=== PATIENT | female | born 1935 | race Caucasian/White ===

== ENCOUNTER 2017-11-20 03:06 | Observation (INO) | payer MEDICARE ==
--- NOTE | 2017-11-20 03:16 | ERNOTE ---
Dyspnea - General Presenting Symptoms: shortness of breath Time Seen by Provider: 11/20/17 03:09 Source: patient Exam Limitations: no limitations - Immun/Allergies/Home Medications Immunizations: IMMUNIZATION HX Immunizations Up to Date Yes History of Influenza Vaccine Yes Hx Pneumococcal Vaccination Yes Allergies/Adverse Reactions: Allergies acetaminophen [From Darvocet-N] Adverse Reaction (Verified 11/20/17 03:14) celecoxib [From Celebrex] Adverse Reaction (Verified 11/20/17 03:14) cephalexin [From Keflex] Adverse Reaction (Verified 11/20/17 03:14) etodolac Adverse Reaction (Verified 11/20/17 03:14) oxycodone Adverse Reaction (Verified 11/20/17 03:14) propoxyphene [From Darvocet-N] Adverse Reaction (Verified 11/20/17 03:14) Home Medications: HOME MEDICATIONS Cranberry Fruit Extract [Cranberry] 425 mg PO DAILY 10/30/17 [Last Taken Unknown ] Glucosamine/D3/Boswellia Shikha [Osteo Bi-Flex Tablet] 2 each PO DAILY 10/30/17 [ Last Taken Unknown] Latanoprost/Pf [Latanoprost 0.005% Eye Drop] 7.5 ml OP DAILY 10/30/17 [Last Taken Unknown] Naproxen Sodium [Aleve] 220 mg PO BID 10/30/17 [Last Taken Unknown] Propranolol HCl [Propranolol HCl ER] 80 mg PO DAILY 10/30/17 [Last Taken Unknown ] traMADol HCL [Tramadol HCl] 50 mg PO TID 10/30/17 [Last Taken Unknown] Loratadine 10 mg PO DAILY 11/20/17 [Last Taken Unknown] - History of Present Illness Narrative: Pt states she has been more short of breath for 24 hours. She denies fever or chills, has has a little bit of a cough Severity: moderate, severe Treatment FUR EXAMINER: paramedics Initiating event: Reports: upper resp illness Review of Systems - Review of Systems Constitutional: Present: recent illness, fatigue. Absent: fever, chills ENT: Absent: nose congestion, nasal drainage Respiratory: Present: shortness of breath, cough Cardiology: Absent: chest pain, palpitations Gastrointestinal/Abdominal: Absent: nausea, vomiting Endocrine: Absent: excessive sweating, flushing Medical History (Last Reviewed 11/20/17 @ 03:21 by Maximo Parker DO) COPD (chronic obstructive pulmonary disease) (Acute) Poole's palsy Glaucoma History of back surgery Hx of cataract Hx of mitral valve prolapse Hx of radiation therapy Hx of skin cancer, basal cell Macular degeneration Migraine Polio Surgical History: Surgical History (Last Reviewed 11/20/17 @ 03:21 by Maximo Parker DO) History of ankle surgery Hx of cataract surgery Hx of colonoscopy Hx of foot surgery Hx of total knee replacement Family History: Family History (Last Updated 11/20/17 @ 03:19 by Марина Marino) Mother Grandmother Colon cancer Father heart problem Other Heart problem Social History: Preferred Language Belarusian Physical Exam - Physical Exam General Appearance: Present: wd/wn, alert, no apparent distress Head Exam: Present: normal inspection, no evidence of injury Eye Exam: Normal inspection: bilateral Ears, Nose, Throat: Present: normal ENT inspection Neck: Present: full range of motion, other - prominant SCM Respiratory: Present: no respiratory distress, accessory muscle use, decreased breath sounds Cardiovascular/Chest: Present: regular rate, rhythm, no murmur, normal peripheral pulses Gastrointestinal/Abdominal: Present: normal bowel sounds, nontender, nondistended, soft Back Exam: Present: decreased range of motion Extremity Exam: Present: normal range of motion, no edema Neurological Exam: Present: alert, oriented, normal mood/affect, no motor/ sensory deficits, mix maker II-XII nml as tested Skin Exam: Present: normal color, warm/dry Lymphatic Exam: Present: no adenopathy ED Progress - Results and Orders Patient's Lab Results:: I have reviewed the patient's lab results. Results and Orders: Laboratory Tests 11/20/17 11/20/17 03:20 03:20 WBC 13.8 H Hgb 15.8 Hct 49.4 H Plt Count 238 Sodium 141 Potassium 4.3 Chloride 105 Carbon Dioxide 32.8 H BUN 31 H Creatinine 0.61 Random Glucose 135 H Calcium 9.9 Total Bilirubin 0.5 AST 41 ALT 44 Alkaline Phosphatase 108 B-Natriuretic Peptide 735 H Total Protein 7.7 Albumin 3.5 - Vital Signs Patient's Vital Signs:: I have reviewed the patient's vital signs. - EKG EKG: RBBB - incomplete, nonspecific ST T wave changes - of old FL, unchanged from - 10/30/2017 EKG read: Interp. by me - X-Ray X-Ray #1 X-Ray: chest Interpretation: Reviewed by me X-ray Comments: unchanged from 10/30. scarring at the bases. no infiltrate or effusion - Progress/Reassessment Progress:: Improved Progress Note-Subjective: 11/20/17 05:[address] Rico and he agrees to admit patient. Departure Clinical Impression: Acute exacerbation of chronic bronchitis - Departure Disposition: Still a patient Condition: Good Referrals: Bigg Jasso MD [Primary Care Provider] -
[2017-11-20 03:24] LABS: Hematocrit 49.4 % (37.0-47.0); Hemoglobin 15.8 gm/dL (12.5-16.0); Mean Cell Volume 96.7 fl (78-100); Mean Corpuscular Hemoglobin 30.9 pg (27-31); Mean Platelet Volume 9.7 fl (8-12.5); Neutrophil # 10.2 K/mm3 (1.3-6.0); Neutrophil % 73.8 % (42-75.0); Platelet Count 238 K/mm3 (150-450); Red Blood Count 5.11 M/mm3 (4.2-5.4); Red Cell Distribution Width 15.6 % (11.5-14.0); White Blood Count 13.8 K/mm3 (4.0-10.5)
[2017-11-20 03:43] LABS: Albumin * 3.5 gm/dl (3.4-5.0); Anion Gap 7.5 mmol/L (6.8-13.8); BUN/Creatinine Ratio 50.8 (9.0-21.6); Bilirubin, Total 0.5 mg/dL (0.0-1.1); Calcium * 9.9 mg/dL (7.9-10.9); Carbon Dioxide 32.8 mmol/L (24-32.6); Potassium 4.3 mmol/L (3.4-4.6); Total Protein 7.7 gm/dL (6.2-8.2)
[2017-11-20] MEDS ORDERED: KETOROLAC TROMETHAMINE 30 MG/ML VIAL IV ONE (04:50)
[2017-11-20] MEDS ORDERED: KETOROLAC TROMETHAMINE 30 MG/ML VIAL ONE (04:53)
[2017-11-20] MEDS ORDERED: METHYLPREDNISOLONE SOD SUCC/PF 125 MG/2 ML VIAL IV ONE (04:57)
[2017-11-20] MEDS ORDERED: METHYLPREDNISOLONE SOD SUCC/PF 125 MG/2 ML VIAL ONE ×2 (04:59→05:03)
[2017-11-20] MEDS ORDERED: LEVOFLOXACIN IN DEXTROSE 5 % 500 MG/100 ML BAG IV SCH (05:30)
[2017-11-20] MEDS ORDERED: guaiFENesin 100 MG/5 ML BTL PO PRN (10:06)
[2017-11-20] MEDS ORDERED: METHYLPREDNISOLONE SOD SUCC/PF 125 MG/2 ML VIAL IV SCH (11:00)
[2017-11-20] MEDS ORDERED: ALBUTEROL SULFATE/IPRATROPIUM 3 ML NEBU IH SCH (11:00)
[2017-11-20] MEDS: NORMAL SALINE 500 ML IV PRN ×2 (11:31→23:24)
[2017-11-20 11:36] LABS: Urine Bilirubin Negative (NEGATIVE); Urine Blood Negative /ul (NEGATIVE); Urine Ketone 5 mg/dL (NEGATIVE); Urine Nitrite Negative (NEGATIVE); Urine Protein Negative (NEGATIVE); Urine Specific Gravity >=1.030 SP.GR. (1.005-1.010); Urine Urobilinogen Normal (NORMAL)
--- NOTE | 2017-11-20 11:37 | PN ---
Progess Note - Interim Date: 11/20/17 Time: 08:00 Narrative: 11/20/17 11:34 I introduced myself to this morning and then introduced Dr. Mohamud to her. Dr. Mohamud will manage her care and do the documentation with me supervising.
[2017-11-20 12:05] LABS: Urine Appearance Clear (CLEAR); Urine Bacteria TRACE; Urine Color Yellow; Urine WBC None Seen /hpf (0-5)
[2017-11-20] MEDS ORDERED: LORATADINE 10 MG TABLET PO SCH (13:45)
[2017-11-20] MEDS ORDERED: PROPRANOLOL HCL 80 MG CAPSULE.SA PO SCH (13:45)
[2017-11-20] MEDS ORDERED: LATANOPROST 25 DROP BTL OP SCH ×2 (13:45→21:00)
[2017-11-20] MEDS: NAPROXEN SODIUM 220 MG TABLET PO SCH ×2 (14:01→21:13)
--- NOTE | 2017-11-20 14:22 | HP ---
Chief Complaint - Chief Complaint Date of Service: 11/20/17 Time of Service: 13:48 Chief Complaint: Shortness of breath of 2 days duration. History of Present Illness: 82 y/o female with PMHX of Polio, COPD, migraines, cataracts, macular degeneration and HTN, was admitted to observation at [facility] for worsening shortness of breath that started yesterday and gradually worsened. Px reports that she occasionally get these episodes with mild exertion due to her COPD but they usually improve with rest and her Ventolin inhaler. However, she says this time her symptoms didn't improve and her breathing became very difficult. Px reports dizziness, chest tightness, weakness, and fever. She also reports occasional nonproductive cough. She was treated with O2, IV antibx, and albuterol in ER and and after evaluation of px and her chart, labs revealed a mild leukocytosis with left shift. Therefore she was admitted to observation for treatment with breathing treatments with only Albuterol since bar refused anticholinergics due to worsening vision secondary to glaucoma and cataracts, she will also be treated with Iv antibiotics, oxygen therapy, and IV steroids. F /U labs were ordered for AM. Medical History (Last Reviewed 11/20/17 @ 07:00 by Karma Rice RN) COPD (chronic obstructive pulmonary disease) (Acute) Poole's palsy Glaucoma Hx of cataract Hx of mitral valve prolapse Hx of radiation therapy Hx of skin cancer, basal cell Macular degeneration Migraine Polio Surgical History: Surgical History (Last Updated 11/20/17 @ 06:59 by Karma Rice RN) History of ankle surgery History of back surgery Hx of cataract surgery Hx of colonoscopy Hx of foot surgery Hx of total knee replacement Family History: Family History (Last Updated 11/20/17 @ 07:03 by Karma Rice RN) Mother Diabetes Grandmother Colon cancer Father heart problem Brother Pacemaker Social History: Patient Lives/Resources Home Utilized Occupation retired Preferred Language Niuean Do you have any baptist or Yes cultural preference? Smoking Status Never smoker Have you smoked in the past 12 No months Do you dip or chew tobacco No Alcohol Use none Peds Patient Hx - Medical: Other - polio Review Of Systems (GEN) - Review of Systems Generalized/Overall Review: Present: Chills, Fever, Fatigue EENTM: Present: Blurred Vision Respiratory: Present: Cough, Shortness of Breath, Wheezing Cardiac: Present: No Symptoms Reported Abdominal: Present: No Symptoms Reported Genitourinary: Present: No Symptoms Reported Musculoskeletal: Present: No Symptoms Reported Neurological: Present: Headache, Weakness, Pre-existing Deficit - Ricky. LLex weakness due to childhood polio. Skin: Present: No Symptoms Reported Endocrine: Present: No Symptoms Reported Misc: All systems neg except as marked Immunizations: IMMUNIZATION HX Immunizations Up to Date Yes History of Influenza Vaccine Yes Hx Pneumococcal Vaccination Yes Allergies/Adverse Reactions: Allergies Allergy/AdvReac Type Severity Reaction Status Date / Time acetaminophen AdvReac Verified 11/20/17 07:03 [From Darvocet-N] celecoxib [From Celebrex] AdvReac Verified 11/20/17 07:03 cephalexin [From Keflex] AdvReac Verified 11/20/17 07:03 etodolac AdvReac Verified 11/20/17 07:03 oxycodone AdvReac Verified 11/20/17 07:03 propoxyphene AdvReac Verified 11/20/17 07:03 [From Darvocet-N] Home Medications: HOME MEDICATIONS Cranberry Fruit Extract [Cranberry] 2 cap PO AC 10/30/17 [Last Taken Unknown] Latanoprost/Pf [Latanoprost 0.005% Eye Drop] 1 drop OP HS 10/30/17 [Last Taken Unknown] Naproxen Sodium [Aleve] 220 mg PO BID 10/30/17 [Last Taken Unknown] Propranolol HCl [Propranolol HCl ER] 80 mg PO DAILY 10/30/17 [Last Taken Unknown ] Albuterol Sulfate [Ventolin HFA] 1 - 2 puff IH Q4H 11/20/17 [Last Taken Unknown] Bone Growth Factor 2 cap PO AC 11/20/17 [Last Taken Unknown] Glucosamine/D3/Boswellia Shikha [Osteo Bi-Flex Caplet] 1 each PO 0700,1700 [Last Taken Unknown] Loratadine 10 mg PO DAILY 11/20/17 [Last Taken Unknown] Migraine Support Formula 2 cap PO 0700,1700 11/20/17 [Last Taken Unknown] [place]-3 Fatty Acids/Fish Oil [Fish Oil 1,000 mg Capsule] 1 each PO 0700,1200, 1700 11/20/17 [Last Taken Unknown] Papaya [Papaya Enzyme] 1 each PO DAILY 11/20/17 [Last Taken Unknown] Systane I-Cap Eye Vitamin 1 tab PO 0700,1700 11/20/17 [Last Taken Unknown] Exam - Exam Vital Signs: Vital Signs - Last Taken Temp 36.5 C 11/20/17 10:25 Pulse 78 11/20/17 10:25 Resp 18 11/20/17 10:25 BP 124/77 11/20/17 10:25 Pulse Ox 94 11/20/17 10:25 Constitutional: Present: Alert, Oriented x3, Cooperative, Mild distress, Elderly , Thin and frail Eye Exam: bilateral eye: normal inspection, PERRL, EOMI, abnormal pupil Neck: Present: full range of motion, supple, normal inspection Back Exam: Present: normal inspection, other - Skeletal protrusion due to extreme thinliness. Breasts: Present: Exam deferred Respiratory: Present: decreased breath sounds, accessory muscle use, expiration (prolonged) Cardiovascular/Chest: Present: normal peripheral pulses, regular rate, rhythm Peripheral Pulses: carotid (R): 4+, carotid (L): 4+, femoral (R): 4+, femoral (L ): 4+, dorsalis-pedis (R): 3+, dorsalis-pedis (L): 3+, radial (R): 4+, radial (L ): 4+ Abdomen: Present: soft, nontender, nondistended, no rebound tenderness, no hepatospenomegaly, no masses, high pitched bowel sounds /Rectal: Present: Exam deferred Extremity: Present: no pedal edema, other - Bilateral deformity of 3rd -5th toes with limited mobility of forefoot. Skin Exam: Present: pallor Lymphatic: Present: no adenopathy Neurologic: Present: check inspector II-XII nml as tested, oriented x 3, abnormal gait, motor weakness - In lower extremities Appearance: Present: appropriate appearance, appropriate insight Eye contact: Present: cooperative, good eye contact Thoughts: Present: normal thought pattern Diagnostic Studies: Abnormal Lab Results 11/20/17 11/20/17 11/20/17 Range/Units 03:20 03:20 11:24 WBC 13.8 H (4.0-10.5) K/mm3 Hct 49.4 H (37.0-47.0) % RDW 15.6 H (11.5-14.0) % Lymphocytes % 13.8 L (20-51) % Eosinophils % 4.8 H (0.0-3.0) % Neutrophils # 10.2 H (1.3-6.0) K/mm3 Carbon Dioxide 32.8 H (24-32.6) mmol/L BUN 31 H (3-23) mg/dL BUN/Creatinine Ratio 50.8 H (9.0-21.6) Random Glucose 135 H (70-110) mg/dL B-Natriuretic Peptide 735 H (5-550) pg/mL Urine Glucose (UA) 250 H (NEGATIVE) mg/dL Urine RBC 5-10 H (0-5) /hpf Ur Epithelial Cells 5-10 H (0-5) /hpf Calcium Oxalate Crystal Moderate - 2+ H (NONE) /hpf Laboratory Results WBC 13.8 K/mm3 (4.0-10.5) H 11/20/17 03:20 RBC 5.11 M/mm3 (4.2-5.4) 11/20/17 03:20 Hgb 15.8 gm/dL (12.5-16.0) 11/20/17 03:20 Hct 49.4 % (37.0-47.0) H 11/20/17 03:20 MCV 96.7 fl (78-100) 11/20/17 03:20 MCH 30.9 pg (27-31) 11/20/17 03:20 MCHC 32.0 g/dl (32-36) 11/20/17 03:20 RDW 15.6 % (11.5-14.0) H 11/20/17 03:20 Plt Count 238 K/mm3 (150-450) 11/20/17 03:20 MPV 9.7 fl (8-12.5) 11/20/17 03:20 Immature Gran % (Auto) 0.20 % (0.001-0.429) 11/20/17 03:20 Immature Gran # (Auto) 0.03 K/mm3 (0.000-0.0310) 11/20/17 03:20 Neutrophils % 73.8 % (42-75.0) 11/20/17 03:20 Lymphocytes % 13.8 % (20-51) L 11/20/17 03:20 Monocytes % 6.7 % (0.0-9) 11/20/17 03:20 Eosinophils % 4.8 % (0.0-3.0) H 11/20/17 03:20 Basophils % 0.7 % (0.0-1.0) 11/20/17 03:20 Nucleated RBC % 0.0 k/mm3 (0-1) 11/20/17 03:20 Neutrophils # 10.2 K/mm3 (1.3-6.0) H 11/20/17 03:20 Lymphocytes # 1.91 k/mm3 (1.5-3.5) 11/20/17 03:20 Monocytes # 0.9 k/mm3 (0.0-1.0) 11/20/17 03:20 Eosinophils # 0.7 k/mm3 (0.0-0.7) 11/20/17 03:20 Absolute Basophils 0.1 k/mm3 (0.0-0.1) 11/20/17 03:20 Sodium 141 mmol/L (132-142) 11/20/17 03:20 Plasma Sodium 142 mmol/L (130-142) 11/20/17 03:20 Potassium 4.3 mmol/L (3.4-4.6) 11/20/17 03:20 Chloride 105 mmol/L (97-106) 11/20/17 03:20 Carbon Dioxide 32.8 mmol/L (24-32.6) H 11/20/17 03:20 Anion Gap 7.5 mmol/L (6.8-13.8) 11/20/17 03:20 BUN 31 mg/dL (3-23) H 11/20/17 03:20 Creatinine 0.61 mg/dL (0.4-1.4) 11/20/17 03:20 Est GFR (Non-Af Amer) 100 mL/min (60-130) D 11/20/17 03:20 BUN/Creatinine Ratio 50.8 (9.0-21.6) H 11/20/17 03:20 Random Glucose 135 mg/dL (70-110) H 11/20/17 03:20 Calcium 9.9 mg/dL (7.9-10.9) 11/20/17 03:20 Calcium Adj for Albumin 10.0 mg/dL (8.4-10.2) 11/20/17 03:20 Total Bilirubin 0.5 mg/dL (0.0-1.1) 11/20/17 03:20 AST 41 U/L (0-48) 11/20/17 03:20 ALT 44 U/L (19-67) 11/20/17 03:20 Alkaline Phosphatase 108 U/L (50-170) 11/20/17 03:20 B-Natriuretic Peptide 735 pg/mL (5-550) H 11/20/17 03:20 Total Protein 7.7 gm/dL (6.2-8.2) 11/20/17 03:20 Albumin 3.5 gm/dl (3.4-5.0) 11/20/17 03:20 Urine Color Yellow 11/20/17 11:24 Urine Appearance Clear (CLEAR) 11/20/17 11:24 Urine pH 6.0 pH (5.0-7.0) 11/20/17 11:24 Ur Specific Polo >=1.030 SP.GR. (1.005-1.010) 11/20/17 11:24 Urine Protein Negative mg/dL (NEGATIVE) 11/20/17 11:24 Urine Glucose (UA) 250 mg/dL (NEGATIVE) H 11/20/17 11:24 Urine Ketones 5 mg/dL (NEGATIVE) 11/20/17 11:24 Urine Blood Negative /ul (NEGATIVE) 11/20/17 11:24 Urine Nitrate Negative (NEGATIVE) 11/20/17 11:24 Urine Bilirubin Negative mg/dl (NEGATIVE) 11/20/17 11:24 Urine Urobilinogen Normal EU/dl (NORMAL) 11/20/17 11:24 Ur Leukocyte Esterase Negative /ul (NEGATIVE) 11/20/17 11:24 Urine RBC 5-10 /hpf (0-5) H 11/20/17 11:24 Urine WBC None seen /hpf (0-5) 11/20/17 11:24 Ur Epithelial Cells 5-10 /hpf (0-5) H 11/20/17 11:24 Calcium Oxalate Crystal Moderate - 2+ /hpf (NONE) H 11/20/17 11:24 Urine Bacteria Trace (NONE) 11/20/17 11:24 Assessment/Plan - Narrative Narrative: Px was admitted to observation for treatment with IV antibx, IV steroids, GENE, and O2 therapy. F/U labs were ordered to reevaluate leukocytosis. We will continue to monitor her closely. - Assessment/Plan (1) COPD exacerbation Assessment: Px is being treated with IV steroids, IV antibx, and PFT with Albuterol. We will monitor her closely. Problem: Acute (2) Chronic bronchitis with acute exacerbation Assessment: Px is being treated with IV antibiotics, mild IV hydration, and breathing treatments with Albuterol. We will evaluate f/u labs in AM. Problem: Acute
[2017-11-20] MEDS: ALBUTEROL SULFATE 2.5 MG/0.5 ML VIAL.NEB IH SCH ×3 (14:23→22:26)
[2017-11-20] MEDS: METHYLPREDNISOLONE SOD SUCC/PF 125 MG/2 ML VIAL IV SCH ×2 (17:17→23:25)
[2017-11-20] MEDS: CRANBERRY FRUIT EXTRACT PO SCH (18:30)
[2017-11-20] MEDS: [UNRECOGNIZED DRUG - OTHER] PO SCH (18:30)
[2017-11-20] MEDS: [UNRECOGNIZED DRUG - OTHER] PO SCH (18:31)
[2017-11-20] MEDS: NON-FORMULARY 1 DOSE DOSE (Glucosamine/D3/Boswellia Serra [Osteo Bi-Flex Caplet] 1 EACH) PO SCH (18:31)
[2017-11-20] MEDS: [UNRECOGNIZED DRUG - OTHER] PO SCH (18:32)
[2017-11-20] MEDS: OMEGA PO SCH (18:32)
[2017-11-20] MEDS: FATTY ACIDS PO SCH (18:32)
[2017-11-20] MEDS: [UNRECOGNIZED DRUG - OTHER] PO SCH (18:32)
[2017-11-20] MEDS: FISH OIL PO SCH (18:32)
[2017-11-20] MEDS: PAPAYA PO SCH (18:36)
[2017-11-21] MEDS: ALBUTEROL SULFATE 2.5 MG/0.5 ML VIAL.NEB IH SCH ×5 (02:06→18:47)
[2017-11-21 05:12] LABS: Hematocrit 39.2 % (37.0-47.0); Hemoglobin 12.3 gm/dL (12.5-16.0); Mean Cell Volume 95.4 fl (78-100); Mean Corpuscular Hemoglobin 29.9 pg (27-31); Mean Corpuscular Hgb Conc 31.4 g/dl (32-36); Mean Platelet Volume 9.8 fl (8-12.5); Neutrophil % 90.1 % (42-75.0); Platelet Count 208 K/mm3 (150-450); Red Blood Count 4.11 M/mm3 (4.2-5.4); Red Cell Distribution Width 15.7 % (11.5-14.0); White Blood Count 12.2 K/mm3 (4.0-10.5)
[2017-11-21 05:18] LABS: Anion Gap 9.1 mmol/L (6.8-13.8); Calcium * 8.9 mg/dL (7.9-10.9); Carbon Dioxide 30.4 mmol/L (24-32.6); Estimated Creat Clear 46.5; Potassium 4.5 mmol/L (3.4-4.6)
[2017-11-21] MEDS ORDERED: LEVOFLOXACIN IN DEXTROSE 5 % 500 MG/100 ML BAG IV SCH (06:30)
[2017-11-21] MEDS: [UNRECOGNIZED DRUG - OTHER] PO SCH ×3 (06:47→16:36)
[2017-11-21] MEDS: CRANBERRY FRUIT EXTRACT PO SCH ×3 (06:48→16:36)
[2017-11-21] MEDS: NON-FORMULARY 1 DOSE DOSE (Glucosamine/D3/Boswellia Serra [Osteo Bi-Flex Caplet] 1 EACH) PO SCH ×2 (06:48→16:37)
[2017-11-21] MEDS: OMEGA PO SCH ×3 (06:49→16:37)
[2017-11-21] MEDS: [UNRECOGNIZED DRUG - OTHER] PO SCH ×2 (06:49→16:41)
[2017-11-21] MEDS: FATTY ACIDS PO SCH ×3 (06:49→16:37)
[2017-11-21] MEDS: [UNRECOGNIZED DRUG - OTHER] PO SCH ×3 (06:49→16:37)
[2017-11-21] MEDS: FISH OIL PO SCH ×3 (06:49→16:37)
[2017-11-21] MEDS: [UNRECOGNIZED DRUG - OTHER] PO SCH ×2 (06:50→16:41)
[2017-11-21] MEDS ORDERED: LORATADINE 10 MG TABLET PO SCH (09:00)
[2017-11-21] MEDS ORDERED: PROPRANOLOL HCL 80 MG CAPSULE.SA PO SCH (09:00)
[2017-11-21] MEDS: PAPAYA PO SCH (09:40)
[2017-11-21] MEDS: NAPROXEN SODIUM 220 MG TABLET PO SCH (09:44)
--- NOTE | 2017-11-21 12:59 | DS ---
(1) COPD exacerbation Problem: Acute (2) Chronic bronchitis with acute exacerbation Problem: Acute Description of Stay: 82 y/o female with PMHx of COPD was admitted to observation for worsening SOB with cough and chest congestion. Px also reported occasional fever and chills for several days. Upon arriving to ER she said that her SOB was not responding to her albuterol inhaler and that she had chest tight and couldn'y draw a breath. Px was treated with IV steroids, IV antibiotics, IV hydration, GENE by nebulizer, and oxygen therapy. She responded well to treatment, her breathing has markedly improved and px reports feeling better. Therefore, she is being discharged with 5 additional days of PO antibx and steroids, Albuterol by nebulizer which was prescbribed. Procedures Performed: none Results and Findings: Pending Mircobiology Results 11/20/17 14:52 Sputum Sputum Culture - Preliminary No Pathogens Isolated Lab Pending Results 11/20/17 03:20: WBC 13.8 H, RBC 5.11, Hgb 15.8, Hct 49.4 H, MCV 96.7, MCH 30.9, MCHC 32.0, RDW 15.6 H, Plt Count 238, MPV 9.7, Immature Gran % (Auto) 0.20, Immature Gran # (Auto) 0.03, Neutrophils % 73.8, Lymphocytes % 13.8 L, Monocytes % 6.7, Eosinophils % 4.8 H, Basophils % 0.7, Nucleated RBC % 0.0, Neutrophils # 10.2 H, Lymphocytes # 1.91, Monocytes # 0.9, Eosinophils # 0.7, Absolute Basophils 0.1 11/20/17 03:20: Sodium 141, Plasma Sodium 142, Potassium 4.3, Chloride 105, Carbon Dioxide 32.8 H, Anion Gap 7.5, BUN 31 H, Creatinine 0.61, Est GFR (Non- Af Amer) 100 D, BUN/Creatinine Ratio 50.8 H, Random Glucose 135 H, Calcium 9.9 , Calcium Adj for Albumin 10.0, Total Bilirubin 0.5, AST 41, ALT 44, Alkaline Phosphatase 108, B-Natriuretic Peptide 735 H, Total Protein 7.7, Albumin 3.5 11/20/17 11:24: Urine Color Yellow, Urine Appearance Clear, Urine pH 6.0, Ur Specific [place] >=1.030, Urine Protein Negative, Urine Glucose (UA) 250 H, Urine Ketones 5, Urine Blood Negative, Urine Nitrate Negative, Urine Bilirubin Negative, Urine Urobilinogen Normal, Ur Leukocyte Esterase Negative, Urine RBC 5 -10 H, Urine WBC None seen, Ur Epithelial Cells 5-10 H, Calcium Oxalate Crystal Moderate - 2+ H, Urine Bacteria Trace 11/20/17 : pCO2 41.2, pO2 85.9, HCO3 27.4, Total CO2 28.7 H, Base Excess 3.0, ABG pH 7.44, ABG O2 Sat (Measured) 96.8 11/21/17 05:00: WBC 12.2 H, RBC 4.11 L, Hgb 12.3 L, Hct 39.2, MCV 95.4, MCH 29.9 , MCHC 31.4 L, RDW 15.7 H, Plt Count 208, MPV 9.8, Immature Gran % (Auto) 0.40, Immature Gran # (Auto) 0.05 H, Neutrophils % 90.1 H, Lymphocytes % 7.5 L, Monocytes % 2.0, Eosinophils % 0.0, Basophils % 0.0, Nucleated RBC % 0.0, Neutrophils # 11.0 H, Lymphocytes # 0.92 L, Monocytes # 0.3, Eosinophils # 0.0, Absolute Basophils 0.0 11/21/17 05:00: Sodium 141, Plasma Sodium 142, Potassium 4.5, Chloride 106, Carbon Dioxide 30.4, Anion Gap 9.1, BUN 39 H, Creatinine 0.75, Est GFR (Non-Af Amer) 79 D, BUN/Creatinine Ratio 52.0 H, Random Glucose 150 H, Calcium 8.9 Discharge Location: Home Disposition: Home self-care Condition: Good Face to Face Encounter completed per CMS Guidelines: Yes Level of Care: SNF Discharge Activity: Activity as tolerated Discharge Diet: General/regular food Referrals: Bigg Schroeder MD [Primary Care Provider] - Problem Oriented Discharge Instructions to Patient/Family: Chronic Obstructive Pulmonary Disease Exacerbation, [id number] Print Language (Georgian or Vietnamese Available): Georgian Additional Patient Instructions (free text): Px was instructed to f/u with her PCP in 3-5 days and to use her breathing treatments with albuterol and inhalor as directed. Follow up with Dr. Schroeder on 11-25-17 at 2:45pm. Prescriptions (Any new or edited meds): Albuterol Sulfate [Albuterol Sulfate 2.5 MG/0.5ML] 1 vial IH Q4H PRN #100 vial PRN Reason: Shortness Of Breath Levofloxacin [Levaquin] 500 mg PO DAILY 5 Days #5 tab predniSONE [Prednisone] 5 mg PO DAILY 5 Days #5 tab Complete Home Medications List: Complete Home Medication List: Cranberry Fruit Extract [Cranberry] 2 cap PO AC 10/30/17 Latanoprost/Pf [Latanoprost 0.005% Eye Drop] 1 drop OP HS 10/30/17 Naproxen Sodium [Aleve] 220 mg PO BID 10/30/17 Propranolol HCl [Propranolol HCl ER] 80 mg PO DAILY 10/30/17 Albuterol Sulfate [Ventolin HFA] 1 - 2 puff IH Q4H 11/20/17 Bone Growth Factor 2 cap PO AC 11/20/17 Glucosamine/D3/Boswellia Shikha [Osteo Bi-Flex Caplet] 1 each PO 0700,1700 Loratadine 10 mg PO DAILY 11/20/17 Migraine Support Formula 2 cap PO 0700,1700 11/20/17 [place]-3 Fatty Acids/Fish Oil [Fish Oil 1,000 mg Capsule] 1 each PO 0700,1200, 1700 11/20/17 Papaya [Papaya Enzyme] 1 each PO DAILY 11/20/17 Systane I-Cap Eye Vitamin 1 tab PO 0700,1700 11/20/17 Albuterol Sulfate [Albuterol Sulfate 2.5 MG/0.5ML] 1 vial IH Q4H PRN #100 vial 11/21/17 Levofloxacin [Levaquin] 500 mg PO DAILY 5 Days #5 tab 11/21/17 guaiFENesin [Robitussin] 200 mg PO Q4H PRN btl 11/21/17 predniSONE [Prednisone] 5 mg PO DAILY 5 Days #5 tab 11/21/17
[2017-11-21] MEDS ORDERED: predniSONE 5 MG TABLET PO ONE (14:02)
[2017-11-22 01:25] VITALS: BP 109/48
== END 2017-11-21 20:13 | disposition home or self-care (01) ==
LOC: ER 03:06 → MS 05:24 → INTOOBSV 05:24 → MS 06:00
PROVIDERS: ADMIT Family Medicine; ATTEND Family Medicine
DX: J40 Bronchitis, not specified as acute or chronic
CPT/HCPCS: 36415; 36600; 71010; 71045; 80048; 80053; 81001; 82803; 83519; 83880; 85025; 87070; 90686; 93005; 94640; 94664; 94760; 96361; 96365; 96366; 96375; 96376; 99284; G0008; G0378